=== PATIENT | female | born 1995 | race African-American/Black ===

== ENCOUNTER 2018-02-22 19:30 | Emergency (ER) | payer OTHER, SELFPAY ==
--- NOTE | 2018-02-22 21:18 | RAD ---
RIGHT FOOT THREE VIEWS: History: Right foot injury. FINDINGS: Lisfranc joint alignment is anatomic. Plantar arch is maintained. No acute fracture or dislocation. IMPRESSION: No acute osseous abnormalities are demonstrated. POS: [facility]
== END 2018-02-22 21:23 | disposition home or self-care (01) ==
LOC: ERS 19:30
DX: S90.31XA Contusion of right foot, initial encounter (principal); S80.11XA Contusion of right lower leg, initial encounter; F32.9 Major depressive disorder, single episode, unspecified; J45.909 Unspecified asthma, uncomplicated; V89.9XXA Person injured in unspecified vehicle accident, initial encounter

== ENCOUNTER 2018-10-12 19:02 | Day surgery (SDC) | payer OTHER, SELFPAY ==
[2018-10-12 19:51] VITALS: BP 112/64; TEMP 99; BMI 27.2
[2018-10-12 21:00] LABS: Bilirubin Negative (Negative); Blood, Urine Negative (Negative); Clarity CLEAR (Clear); Glucose, Urine (Dipstick) Negative (Negative); Leukocyte Moderate (Negative); Nitrite Negative (Negative); Protein, Urine (Dipstick) Negative (Neg-Trace); Specific Gravity, Urine 1.025 (1.002-1.036); pH, Urine 6.5 (5.0-9.0)
[2018-10-12 21:03] LABS: Bacteria/HPF Rare-Few HPF (None Seen); Hyaline Casts/LPF 0-3 HYALINE CAST LPF (0-3 Hyaline); Pathc Cast-AUWi Flag 0.13 (0-2.49); RBC/HPF 0-3 HPF (0-3)
[2018-10-12 21:05] LABS: Urine Culture Reflex No No
--- NOTE | 2018-10-12 21:28 | PDOC.LDHP ---
Labor and Delivery H&P Chief complaint: abdominal pain HPI: 22 y/o at 28w4d, patient of Dr. Kim, presents with constant, sharp lower abdominal pain. Has not taken anything for pain, worse with walking. Denies VB, LOF, ctx, or other concerns. ROS neg for HEENT, cv, pulm, gi, gu, neuro, psych, skin, musculoskeletal or constitutional symptoms other than mentioned above. OB History Details: 1 prior term Current complications: none Past Medical History: Childhood asthma Current medications: pre-[place] vitamins Previous surgical history: none Allergies/Adverse Reactions: Allergies Allergy/AdvReac Type Severity Reaction Status Date / Time No Known Drug Allergies Allergy Verified 10/12/18 19:46 Social history: none - Physical Exam Vital signs reviewed and normal: yes General: NAD, resting Lungs: nonlabored breathing Abdomen: gravid Extremeties: no edema FHT: category 1 (145, mod variability, + 10x10 accels, no decels) [place] contractions every: none - Vaginal Exam cm dilated: 0 Effacement: 0% Station: -3 - Assessment 22 y/o at 28w4d with musculoskeletal discomforts of . No e/o uti or PTL. status reassuring. - Plan -: D/c home with precautions. Advised to keep all appointments.
== END 2018-10-12 21:10 | disposition home or self-care (01) ==
LOC: L&D/OP 19:02
PROVIDERS: ATTEND Obstetrics & Gynecology
DX: O99.89 Other specified diseases and conditions complicating pregnancy, childbirth and the puerperium (principal); R10.30 Lower abdominal pain, unspecified; Z3A.28 28 weeks gestation of pregnancy
CPT/HCPCS: 81001; 99283

== ENCOUNTER 2018-10-23 15:00 | Emergency (ER) | payer OTHER | END 2018-10-23 16:48 | disposition home or self-care (01) | LOC: ERS 15:00 | DX: H10.9 Unspecified conjunctivitis (principal); J45.909 Unspecified asthma, uncomplicated; F32.9 Major depressive disorder, single episode, unspecified | CPT/HCPCS: 99283 ==

== ENCOUNTER 2018-12-09 05:22 | Day surgery (SDC) | payer OTHER ==
[2018-12-09 05:50] VITALS: BMI 29.3
[2018-12-09] MEDS ORDERED: hydrALAZINE 20 MG/ML VIAL SLOW IVP PRN (06:11)
--- NOTE | 2018-12-09 06:13 | PDOC.LDHP ---
Labor and Delivery H&P HPI: Patient of Dr Kim Time: 604 EGA: 36 weeks 6 days 22 yo at 36.6 with CTX since 010. no VB, no LOF, good FM. Review of Systems: complete ROS performed and as per HPI Current gestational age (weeks): 36 (6 days) Due date: 12/31/18 Grav: 2 Para: 1 OB History Details: HX Current complications: none Abnormal US findings: No Current medications: pre- vitamins Previous surgical history: none Allergies/Adverse Reactions: Allergies Allergy/AdvReac Type Severity Reaction Status Date / Time No Known Drug Allergies Allergy Verified 10/12/18 19:46 - Physical Exam Vital signs reviewed and normal: yes (119/71 79 100% 98.6) General: NAD Heart: RRR Lungs: CTAB Abdomen: gravid Extremeties: no edema FHT: category 1 [place] contractions every: irregular ctx, some couplets - Vaginal Exam cm dilated: 2 Effacement: 25% Station: -2 - Assessment Threatened PTL...was 1cm lasdt week, now 2cm...36 weeks 6 days - Plan Plan: observation in L&D (WE will obs in L&D for 2 hours; check GBS status)
--- NOTE | 2018-12-09 08:27 | PDOC.EVN ---
Event Note - Event Note Event Note: Patient unchanged after 2 hours. D/c home with precautions. Has appointment for this afternoon.
== END 2018-12-09 08:26 | disposition home or self-care (01) ==
LOC: L&D/OP 05:22
PROVIDERS: ATTEND Obstetrics & Gynecology
DX: O47.03 False labor before 37 completed weeks of gestation, third trimester (principal); Z3A.36 36 weeks gestation of pregnancy
CPT/HCPCS: 99283

== ENCOUNTER 2018-12-21 10:46 | Inpatient (IN) | payer OTHER ==
[2018-12-21] MEDS ORDERED: HYDROcodone/Acetaminophen 5/325 mg Tablet PO PRN ×2 (10:57)
[2018-12-21] MEDS ORDERED: Promethazine HCl 25 MG/ML VIAL IM PRN ×2 (10:57→16:13)
[2018-12-21] MEDS ORDERED: Lidocaine 1% (PF) 30 ML VIAL SC PRN (10:57)
[2018-12-21] MEDS ORDERED: Butorphanol Tartrate 1 MG/ML VIAL SLOW IVP PRN (10:57)
[2018-12-21] MEDS ORDERED: Diphenoxylate HCl/Atropine Tablet PO PRN ×2 (10:57)
[2018-12-21] MEDS ORDERED: Acetaminophen 500 MG TAB PO PRN (10:57)
[2018-12-21] MEDS ORDERED: hydrALAZINE 20 MG/ML VIAL SLOW IVP PRN ×2 (10:57→20:16)
[2018-12-21] MEDS ORDERED: Ibuprofen 800 MG TAB PO PRN (10:57)
[2018-12-21] MEDS ORDERED: Ondansetron PF 4 MG/2 ML Vial IVP PRN ×3 (10:57→20:16)
[2018-12-21] MEDS ORDERED: Docusate 100 MG CAP PO PRN (10:57)
[2018-12-21] MEDS ORDERED: NS / Oxytocin 40 units/1000ml 1,000 ML IV PRN (10:57)
[2018-12-21] MEDS ORDERED: Misoprostol 200 MCG TAB PR PRN (10:57)
[2018-12-21] MEDS ORDERED: NS w/ Oxytocin 10 units 500 ML IV SCH ×2 (11:00)
[2018-12-21] MEDS: Lactated Ringer's 1,000 ML IV SCH ×2 (11:18→23:00)
[2018-12-21 11:34] LABS: Hemoglobin 9.8 g/dL (12.0-16.0); Mean Corpuscular HGB CONC 32.1 g/dL (32.0-36.0); Mean Corpuscular Hemoglobin 24.1 pg (27.0-31.0); Mean Corpuscular Volume 74.9 fL (78.0-98.0); Mean Platelet Volume 8.3 fL (7.4-10.4); Platelet Count 203 thou/uL (130-400); RBC Distribution Width 15.5 % (11.5-14.5); Red Blood Cell (RBC) Count 4.06 mill/uL (4.20-5.40); White Blood Cell (WBC) Count 8.6 thou/uL (4.8-10.8)
[2018-12-21 11:45] VITALS: BMI 29.8
[2018-12-21 12:14] LABS: Syphilis Antibody Nonreactive (Nonreactive); Syphilis Antibody Index 0.04 S/CO (<1.00 Non-Reactive)
[2018-12-21 12:28] LABS: HBSAg Index 0.17 S/CO (0-0.99); Hep B Surf Ag Non-Reactive S/CO (NonReactive)
[2018-12-21] MEDS ORDERED: Fentanyl 4 mcg/Bup 0.1% Cadd 100 ML ONE (16:02)
[2018-12-21] MEDS ORDERED: Lidocaine 1.5%/Epinephrine 1:200,000 5 ML AMPUL IJ ONE (16:04)
[2018-12-21] MEDS ORDERED: Naloxone HCl 0.4 mg/ml Vial IVP PRN ×2 (16:13)
[2018-12-21] MEDS ORDERED: Lactated Ringer's 500 ML IV PRN (16:13)
[2018-12-21] MEDS ORDERED: Acetaminophen 325 MG TAB PO PRN (16:13)
[2018-12-21] MEDS ORDERED: diphenhydrAMINE 50 MG/ML VIAL IVP PRN (16:13)
[2018-12-21] MEDS ORDERED: ePHEDrine/0.9% NaCl/PF SYRINGE 50 mg/10 ml SLOW IVP PRN (16:13)
[2018-12-21] MEDS ORDERED: Fentanyl 4 mcg/Bupivacaine 0.1% Cassette 100 ML EPIDURAL SCH (16:15)
[2018-12-21] MEDS ORDERED: Communication Order-Pharmacy FS SCH (16:15)
[2018-12-21] MEDS ORDERED: Lidocaine 1% (PF) 30 ML VIAL ONE (19:16)
[2018-12-21] MEDS ORDERED: NS / Oxytocin 40 units/1000ml 1,000 ML ONE (19:16)
[2018-12-21] MEDS ORDERED: Milk Of Magnesia 30 ML UDCUP PO PRN (20:16)
[2018-12-21] MEDS ORDERED: Adacel (T-DAP) 0.5 ML SYRINGE IM ONE (20:16)
[2018-12-21] MEDS ORDERED: Benzocaine-Menthol 82.5 ML CAN TOP PRN (20:16)
[2018-12-21] MEDS ORDERED: Preparation H Ointment 28 GM TUBE PR PRN (20:16)
[2018-12-21] MEDS ORDERED: Zolpidem Tartrate 5 MG TAB PO PRN (20:16)
[2018-12-21] MEDS ORDERED: Bisacodyl 10 MG SUPP PR PRN (20:16)
[2018-12-21] MEDS ORDERED: Lanolin Ointment 7 GM TUBE TOP PRN (20:16)
[2018-12-21] MEDS ORDERED: Acetaminophen/Codeine 30-300mg Tablet PO PRN (20:16)
[2018-12-21] MEDS ORDERED: diphenhydrAMINE 25 MG CAP PO PRN (20:16)
[2018-12-21] MEDS ORDERED: NS / Oxytocin 40 units/1000ml 1,000 ML IV SCH (20:30)
[2018-12-21] MEDS: Docusate Calcium (SURFAK) 240 MG CAP PO SCH (22:36)
[2018-12-21] MEDS: Ibuprofen 800 MG TAB PO SCH (22:36)
[2018-12-22 04:54] LABS: Hemoglobin 8.4 g/dL (12.0-16.0); Mean Corpuscular HGB CONC 31.9 g/dL (32.0-36.0); Mean Corpuscular Hemoglobin 24.2 pg (27.0-31.0); Mean Corpuscular Volume 75.8 fL (78.0-98.0); Mean Platelet Volume 8.7 fL (7.4-10.4); Platelet Count 171 thou/uL (130-400); RBC Distribution Width 15.3 % (11.5-14.5); Red Blood Cell (RBC) Count 3.46 mill/uL (4.20-5.40); White Blood Cell (WBC) Count 10.4 thou/uL (4.8-10.8)
[2018-12-22] MEDS: Ibuprofen 800 MG TAB PO SCH ×3 (05:48→21:24)
[2018-12-22] MEDS: Prenatal Vitamin 1 TAB PO SCH (08:23)
[2018-12-22] MEDS: Docusate Calcium (SURFAK) 240 MG CAP PO SCH ×2 (08:23→21:24)
[2018-12-22] MEDS: Ferrous Sulfate 325 MG TAB PO SCH ×2 (08:23→17:05)
[2018-12-22] MEDS: Acetaminophen/Codeine 30-300mg Tablet PO PRN ×2 (17:06→21:25)
[2018-12-23] MEDS: Ibuprofen 800 MG TAB PO SCH ×2 (05:34→06:13)
[2018-12-23 08:23] VITALS: BP 94/55; TEMP 98.4
[2018-12-23] MEDS: Docusate Calcium (SURFAK) 240 MG CAP PO SCH (09:35)
[2018-12-23] MEDS: Ferrous Sulfate 325 MG TAB PO SCH (09:35)
[2018-12-23] MEDS: Prenatal Vitamin 1 TAB PO SCH ×2 (09:36→09:50)
== END 2018-12-23 11:45 | disposition home or self-care (01) | DRG 807 ==
LOC: L&D/OP 10:46 → L&D 10:50 → 3SW 22:36
PROVIDERS: ADMIT Obstetrics & Gynecology; ATTEND Obstetrics & Gynecology
PROC: 10E0XZZ Delivery of Products of Conception, External Approach (ICD-10-PCS; principal; 2018-12-21)
PROC: 10907ZC Drainage of Amniotic Fluid, Therapeutic from Products of Conception, Via Natural or Artificial Opening (ICD-10-PCS; 2018-12-21)
DX: O80 Encounter for full-term uncomplicated delivery (principal); Z37.0 Single live birth; Z3A.38 38 weeks gestation of pregnancy
CPT/HCPCS: 36415; 51702; 85027; 86780; 86850; 86900; 86901; 87340; J2001; J2590; J3490

== ENCOUNTER 2021-09-23 09:40 | Emergency (ER) | payer OTHER | END 2021-09-23 10:25 | disposition home or self-care (01) | LOC: ERS 09:40 | DX: B34.9 Viral infection, unspecified (principal) | CPT/HCPCS: 99283 ==